=== PATIENT | male | born 1985 | race Caucasian/White ===

== ENCOUNTER 2017-11-03 10:52 | Outpatient (RCR) | payer BC | END 2017-11-20 | LOC: PT 10:52 | PROVIDERS: ATTEND Specialist | DX: S82.55XS Nondisplaced fracture of medial malleolus of left tibia, sequela (principal); M25.572 Pain in left ankle and joints of left foot; M25.672 Stiffness of left ankle, not elsewhere classified; M62.81 Muscle weakness (generalized); R26.2 Difficulty in walking, not elsewhere classified ==